=== PATIENT | female | born 1930 | race Caucasian/White ===

== ENCOUNTER 2017-10-26 17:12 | Observation (INO) | payer OTHER, MEDICARE ==
[2017-10-26] MEDS ORDERED: ONDANSETRON 4 MG/2 ML VIAL ONE (17:56)
[2017-10-26] MEDS ORDERED: ONDANSETRON 4 MG/2 ML VIAL IVPUSH ONE (18:01)
--- NOTE | 2017-10-26 18:04 | PDOC ---
History of Present Illness <Andreia Delgadillo - Last Filed: 10/26/17 18:04> - General History Source: Patient Exam Limitations: No Limitations - History of Present Illness Initial Comments: 10/26/17 20:46 87 y.o female with significant past medical history of depression and appendectomy, who presents to the emergency room complaining of 1 day of lightheadedness, nausea, and diarrhea. She notes that she experienced 2 bouts of nonbloody diarrhea today. The patient states that she was sitting on the couch at home when she suddenly felt lightheaded like she was going to pass out and called EMS. Her last meal was 2 slices of toast and a cup of tea this morning. She notes that she had a normal well visit with her PCP in the office yesterday. Denies vomiting, fever, chills. Denies abdominal pain. Denies sick contact. Denies chest pain, SOB, leg swelling. Allergies: codeine, penicillins Social hx: The patient states that her 2 years ago and she now lives at home alone. PCP: Dr. 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) Cardiac Disorders: No CVA: No COPD: No CHF: No Dementia: No Diabetes: No GI Disorders: Yes (COLONIC POLYPS GERD) Disorders: Yes (URINARY FREQUENCY) HTN: No Hypercholesterolemia: Yes (DOES NOT TAKE MEDICATION) Liver Disease: No Seizures: No Thyroid Disease: No - Surgical History Abdominal Surgery: Yes (EXPLORATORY LAPARASCOPY) Appendectomy: No Cardiac Surgery: No Cholecystectomy: No Gastric Stapling: No Lung Surgery: No Neurologic Surgery: No Orthopedic Surgery: No - Immunization History Immunization Up to Date: No - Suicide/Smoking/Psychosocial Hx Smoking History: Never smoked Have you smoked in the past 12 months: No Information on smoking cessation initiated: No Hx Alcohol Use: No Drug/Substance Use Hx: No Substance Use Type: None Hx Substance Use Treatment: No <Andreia Delgadillo - Last Filed: 10/26/17 18:04> <Jeanna Medrano - Last Filed: 10/26/17 20:47> - Past Medical History Allergies/Adverse Reactions: Allergies Allergy/AdvReac Type Severity Reaction Status Date / Time codeine [Codeine] Allergy Verified 12/23/15 13:24 Penicillins Allergy Verified 12/23/15 13:24 Home Medications: Ambulatory Orders Multivit-Min/FA/Lycopene/Lut [Centrum Silver Tablet] 1 each PO DAILY 09/11/13 Aspirin [Aspir 81] 81 mg PO DAILY 10/11/13 Cholecalciferol (Vitamin D3) [Vitamin D3] 2,000 unit PO DAILY tablet 10/11/13 Review of Systems - Review of Systems Able to Perform ROS?: Yes Comments:: 10/26/17 20:46 GENERAL/CONSTITUTIONAL: No fever or chills. No weakness. HEAD, EYES, EARS, NOSE AND THROAT: No change in vision. No ear pain or discharge. No sore throat. GASTROINTESTINAL: +Nausea, diarrhea. No vomiting or constipation. GENITOURINARY: No dysuria, frequency, or change in urination. CARDIOVASCULAR: No chest pain or shortness of breath. RESPIRATORY: No cough, wheezing, or hemoptysis. MUSCULOSKELETAL: No joint or muscle swelling or pain. No neck or back pain. SKIN: No rash NEUROLOGIC: No headache, vertigo, loss of consciousness, or change in strength/ sensation. ENDOCRINE: No increased thirst. No abnormal weight change. HEMATOLOGIC/LYMPHATIC: No anemia, easy bleeding, or history of blood clots. ALLERGIC/IMMUNOLOGIC: No hives or skin allergy. <Jeanna Medrano - Last Filed: 10/26/17 20:47> *Physical Exam - Vital Signs Last Vital Signs Temp Pulse Resp BP Pulse Ox 97.7 F 66 20 150/68 99 10/26/17 17:13 10/26/17 17:13 10/26/17 17:13 10/26/17 17:13 10/26/17 17:13 <Andreia Delgadillo - Last Filed: 10/26/17 18:04> - Vital Signs Last Vital Signs Temp Pulse Resp BP Pulse Ox 97.7 F 66 20 150/68 99 10/26/17 17:13 10/26/17 17:13 10/26/17 17:13 10/26/17 17:13 10/26/17 17:13 - Physical Exam Comments: 10/26/17 20:47 GENERAL: Awake, alert, and fully oriented, in no acute distress HEAD: No signs of trauma EYES: PERRLA, EOMI, sclera anicteric, conjunctiva clear ENT: Auricles normal inspection, hearing grossly normal, nares patent, oropharynx clear without exudates. +dry mucous membranes NECK: Normal ROM, supple, no lymphadenopathy, JVD, or masses LUNGS: Breath sounds equal, clear to auscultation bilaterally. No wheezes, and no crackles HEART: Regular rate and rhythm, normal S1 and S2, no murmurs, rubs or gallops ABDOMEN: Soft, nontender, normoactive bowel sounds. No guarding, no rebound. No masses EXTREMITIES: Normal range of motion, no edema. No clubbing or cyanosis. No cords, erythema, or tenderness BACK: No midline spinal tenderness in cervical/thoracic/lumbar region NEUROLOGICAL: Normal speech, cranial nerves intact, negative pronator drift, 5/ 5 strength in all 4 extremities, normal sensation to light touch in all 4 extremities, normal cerebellar exam, normal gait, normal reflexes and tone SKIN: Warm, Dry, normal turgor, no rashes or lesions noted. <Jeanna Medrano - Last Filed: 10/26/17 20:47> ED Treatment Course - Medications Given in the ED: ED Medications Discontinued Medications Generic Name Dose Route Start Last Admin Trade Name Carlos PRN Reason Stop Dose Admin Ondansetron HCl 4 mg 10/26/17 18:01 10/26/17 18:01 Zofran Injection IVPUSH 10/26/17 18:02 4 mg NOW ONE Administration <Andreia Delgadillo - Last Filed: 10/26/17 18:04> - LABORATORY CBC & Chemistry Diagram: 10/26/17 18:01 10/26/17 18:01 - ADDITIONAL ORDERS Additional order review: Laboratory Results 10/26/17 10/26/17 18:23 18:01 Sodium 137 Potassium 4.0 Chloride 106 Carbon Dioxide 20 L D Anion Gap 11 BUN 14 Creatinine 0.8 Creat Clearance w eGFR > 60 Random Glucose 123 H Calcium 9.5 Magnesium 2.1 Total Bilirubin 0.7 D AST 27 ALT 21 D Alkaline Phosphatase 64 Troponin I 0.00 Total Protein 7.0 Albumin 4.1 10/26/17 18:01 RBC 4.64 MCV 90.9 MCHC 33.1 RDW 12.5 MPV 10.5 Neutrophils % 71.7 D Lymphocytes % 18.5 D Monocytes % 8.7 Eosinophils % 1.0 Basophils % 0.1 - Medications Given in the ED: ED Medications Discontinued Medications Generic Name Dose Route Start Last Admin Trade Name Carlos PRN Reason Stop Dose Admin Ondansetron HCl 4 mg 10/26/17 18:01 10/26/17 18:01 Zofran Injection IVPUSH 10/26/17 18:02 4 mg NOW ONE Administration Sodium Chloride 1,000 ml 10/26/17 18:22 10/26/17 18:27 Normal Saline - IV 10/26/17 18:23 1,000 ml ONCE ONE Administration <Jeanna Medrano - Last Filed: 10/26/17 20:47> *DC/Admit/Observation/Transfer <Andreia Delgadillo - Last Filed: 10/26/17 18:04> - Attestations Scribe Attestion: 10/26/17 20:47 Documentation prepared by JIAN Mobley, acting as medical observer for Cynthia Hernandez MD. <Jeanna Medrano - Last Filed: 10/26/17 20:47> Diagnosis at time of Disposition: Dehydration Diarrhea Qualifiers: Diarrhea type: presumed infectious Qualified Code(s): A09 - Infectious gastroenteritis and colitis, unspecified
[2017-10-26 18:22] LABS: BASO % 0.1 % (0-2.0); MCH 30.1 pg (25.7-33.7); MCHC 33.1 g/dl (32.0-36.0); MEAN CELL VOLUME 90.9 fl (80-96); MEAN PLT VOLUME 10.5 fl (7.5-11.1); NEUT % 71.7 % (42.8-82.8); PLATELET COUNT 165 K/MM3 (134-434); RDW 12.5 % (11.6-15.6); WHITE BLOOD COUNT 6.7 K/mm3 (4.0-10.8)
[2017-10-26] MEDS ORDERED: SODIUM CHLORIDE 0.9% 500 ML INFUS.BAG IV ONE (18:22)
[2017-10-26 18:30] LABS: ALBUMIN 4.1 g/dl (3.5-5.0); ALK PHOS 64 U/L (32-92); ANION GAP 11 (8-16); BILIRUBIN,TOTAL 0.7 mg/dl (0.2-1.0); CALCIUM 9.5 mg/dl (8.4-10.2); CO2 20 mmol/L (22-28); CREATININE 0.8 mg/dl (0.6-1.3); GLUCOSE,RANDOM 123 mg/dl (74-106); SGOT/AST 27 U/L (10-42); SGPT/ALT 21 U/L (10-40)
[2017-10-26 18:45] LABS: MAGNESIUM 2.1 mg/dL (1.8-2.4)
[2017-10-26 18:55] LABS: EOS # 0.1 #; LYMPH # 1.2 # (8-40); MONO # 0.6 #; NEUT # 4.8 # (42.8-82.8)
--- NOTE | 2017-10-26 20:17 | PDOC ---
*Physical Exam - Vital Signs Last Vital Signs Temp Pulse Resp BP Pulse Ox 97.7 F 66 20 150/68 99 10/26/17 17:13 10/26/17 17:13 10/26/17 17:13 10/26/17 17:13 10/26/17 17:13 ED Treatment Course - LABORATORY CBC & Chemistry Diagram: 10/26/17 18:01 10/26/17 18:01 - ADDITIONAL ORDERS Additional order review: Laboratory Results 10/26/17 10/26/17 18:23 18:01 Sodium 137 Potassium 4.0 Chloride 106 Carbon Dioxide 20 L D Anion Gap 11 BUN 14 Creatinine 0.8 Creat Clearance w eGFR > 60 Random Glucose 123 H Calcium 9.5 Magnesium 2.1 Total Bilirubin 0.7 D AST 27 ALT 21 D Alkaline Phosphatase 64 Troponin I 0.00 Total Protein 7.0 Albumin 4.1 10/26/17 18:01 RBC 4.64 MCV 90.9 MCHC 33.1 RDW 12.5 MPV 10.5 Neutrophils % 71.7 D Lymphocytes % 18.5 D Monocytes % 8.7 Eosinophils % 1.0 Basophils % 0.1 - Medications Given in the ED: ED Medications Discontinued Medications Generic Name Dose Route Start Last Admin Trade Name Freq PRN Reason Stop Dose Admin Ondansetron HCl 4 mg 10/26/17 18:01 10/26/17 18:01 Zofran Injection IVPUSH 10/26/17 18:02 4 mg NOW ONE Administration Sodium Chloride 1,000 ml 10/26/17 18:22 10/26/17 18:27 Normal Saline - IV 10/26/17 18:23 1,000 ml ONCE ONE Administration Progress Note - Progress Note Progress Note: Care of this patient received from Case discussed with EVELYN Sahu. Patient admitted in observation status to [facility]. admitting. *DC/Admit/Observation/Transfer Diagnosis at time of Disposition: Dehydration Diarrhea Qualifiers: Diarrhea type: presumed infectious Qualified Code(s): A09 - Infectious gastroenteritis and colitis, unspecified - Discharge Dispostion Admit: Yes - Referrals - Patient Instructions - Post Discharge Activity
--- NOTE | 2017-10-26 20:54 | HP ---
CHIEF COMPLAINT: Diarrhea PCP: Dr. Sharma HISTORY OF PRESENT ILLNESS: 87 year-old female with a PMH significant for depression. Patient states she ate a ham sandwich yesterday and the ham was not fresh, had been in the refrigerator for a week. She awoke this morning in her usual state of health and had tea and toast for breakfast. She left the house and had a large diarrheal movement. She returned home, cleaned herself, and then had a second diarrheal episode. Both episodes were preceded by abdominal cramping. Both were dark brown and watery. Patient became lightheaded and called 911. Since arriving to ED there have been no further episodes of diarrhea and she feels better after receiving 1L NS. Patient reports her stomach was bloated and distended prior to the diarrhea episodes and that has resolved. Patient denies fever, sweats, chills. Admits to nausea, no vomiting. No recent antibiotics. No recent travel. No sick contacts. Denies dysuria, urgency, wears a pad for a "leaky bladder." Has not had the flu shot and declines now. ER course was notable for: (1) Afebrile, vital signs stable (2) No leukocytosis (3) NS 1L x 1 Recent Travel: No PAST MEDICAL HISTORY: Depression Basal cell carcinoma (face) GERD Colonic polyps Urinary incontinence PAST SURGICAL HISTORY: Exploratory laparascopy Appendectomy Social History: Smoking: never Alcohol: no Drugs: no Family History: , lives alone Allergies codeine [Codeine] Allergy (Verified 12/23/15 13:24) Penicillins Allergy (Verified 12/23/15 13:24) HOME MEDICATIONS: Medication Instructions Recorded Multivit-Min/FA/Lycopene/Lut 1 each PO DAILY 09/11/13 [Centrum Silver Tablet] Aspirin [Aspir 81] 81 mg PO DAILY 10/11/13 Cholecalciferol (Vitamin D3) 2,000 unit PO DAILY tablet 10/11/13 [Vitamin D3] REVIEW OF SYSTEMS CONSTITUTIONAL: Present: lightheadedness Absent: fever, chills, diaphoresis, generalized weakness, malaise, loss of appetite, weight change HEENT: Absent: rhinorrhea, nasal congestion, throat pain, throat swelling, difficulty swallowing, mouth swelling, ear pain, eye pain, visual changes CARDIOVASCULAR: Absent: chest pain, syncope, palpitations, irregular heart rate, lightheadedness , peripheral edema RESPIRATORY: Absent: cough, shortness of breath, dyspnea with exertion, orthopnea, wheezing, stridor, hemoptysis GASTROINTESTINAL: Present: abdominal cramping, bloating, diarrhea, nausea Absent: vomiting, constipation, melena, hematochezia GENITOURINARY: Present: urinary incontinence Absent: dysuria, frequency, urgency, hesitancy, hematuria, flank pain, genital pain MUSCULOSKELETAL: Absent: myalgia, arthralgia, joint swelling, back pain, neck pain SKIN: Absent: rash, itching, pallor HEMATOLOGIC/IMMUNOLOGIC: Absent: easy bleeding, easy bruising, lymphadenopathy, frequent infections ENDOCRINE: Absent: unexplained weight gain, unexplained weight loss, heat intolerance, cold intolerance NEUROLOGIC: Absent: headache, focal weakness or paresthesias, dizziness, unsteady gait, seizure, mental status changes, bladder or bowel incontinence PSYCHIATRIC: Absent: anxiety, depression, suicidal or homicidal ideation, hallucinations. PHYSICAL EXAMINATION Vital Signs - 24 hr 10/26/17 17:13 Temperature 97.7 F Pulse Rate 66 Respiratory 20 Rate Blood Pressure 150/68 O2 Sat by Pulse 99 Oximetry (%) GENERAL: Awake, alert, and fully oriented, in no acute distress. HEAD: Normal with no signs of trauma. EYES: Pupils equal, round and reactive to light, extraocular movements intact, sclera anicteric, conjunctiva clear. No lid lag. EARS, NOSE, THROAT: Ears normal, nares patent, oropharynx clear without exudates. Moist mucous membranes. NECK: Normal range of motion, supple without lymphadenopathy, JVD, or masses. LUNGS: Breath sounds equal, clear to auscultation bilaterally. No wheezes, and no crackles. No accessory muscle use. HEART: Regular rate and rhythm, normal S1 and S2 without murmur, rub or gallop. ABDOMEN: Soft, nontender, not distended, normoactive bowel sounds, no guarding, no rebound. MUSCULOSKELETAL: Normal range of motion at all joints. No bony deformities or tenderness. No CVA tenderness. UPPER EXTREMITIES: 2+ pulses, warm, well-perfused. No cyanosis. No clubbing. No peripheral edema. LOWER EXTREMITIES: 2+ pulses, warm, well-perfused. No calf tenderness. No peripheral edema. NEUROLOGICAL: Cranial nerves II-XII intact. Normal speech. Laboratory Results - last 24 hr 10/26/17 10/26/17 10/26/17 18:01 18:01 18:23 WBC 6.7 RBC 4.64 Hgb 14.0 Hct 42.2 MCV 90.9 MCH 30.1 MCHC 33.1 RDW 12.5 Plt Count 165 MPV 10.5 Absolute Neuts (auto) 4.8 L Absolute Lymphs (auto) 1.2 L Absolute Monos (auto) 0.6 Absolute Eos (auto) 0.1 Absolute Basos (auto) 0.0 L Neutrophils % 71.7 D Lymphocytes % 18.5 D Monocytes % 8.7 Eosinophils % 1.0 Basophils % 0.1 Sodium 137 Potassium 4.0 Chloride 106 Carbon Dioxide 20 L D Anion Gap 11 BUN 14 Creatinine 0.8 Creat Clearance w eGFR > 60 Random Glucose 123 H Calcium 9.5 Magnesium 2.1 Total Bilirubin 0.7 D AST 27 ALT 21 D Alkaline Phosphatase 64 Troponin I 0.00 Total Protein 7.0 Albumin 4.1 ASSESSMENT/PLAN: 87 year-old female with a PMH significant for depression. Placed on observation for lightheadedness likely secondary to dehydration from diarrhea. Diarrhea --non-focal exam --no fever, no leukocytosis, no electrolyte imbalance --collect and send occult stool, c.diff, UA, UC Lightheadedness --likely secondary to GI losses, has been hemodynamically stable --orthostatics now --gentle IV fluids --review ECG, telemetry monitoring overnight FEN Fluids: D51/2 @ 75mL/hr Electrolytes: replete as indicated Nutrition: NPO for now; trial of clears for breakfast DVT prophylaxis: SCDs, oob, ambulation; start subq lovenox tomorrow if still here. Dispo: continues to require observation. Full code. Visit type - Emergency Visit Emergency Visit: Yes Care time: The patient presented to the Emergency Department on the above date and was hospitalized for further evaluation of their emergent condition. - New Patient This patient is new to me today: Yes Date on this admission: 10/26/17 - Critical Care Critical Care patient: No
[2017-10-26] MEDS ORDERED: ACETAMINOPHEN 325 MG TABLET (FP) PO PRN (20:56)
[2017-10-26] MEDS ORDERED: DEXTROSE 5%-0.45% SALINE 1,000 ML IV SCH (21:00)
[2017-10-26] MEDS ORDERED: HEPARIN NA (PORCINE) 5,000 UNITS/ML 1ML VIAL ONE (21:51)
[2017-10-26 22:00] LABS: PH,URINE 5.5 (4.5-8); URINE BILIRUBIN Negative (NEGATIVE); URINE GLUCOSE (UA) Negative (NEGATIVE); URINE KETONE 3+ (NEGATIVE); URINE NITRITE Negative (NEGATIVE); URINE PROTEIN Negative (NEGATIVE); URINE UROBILINOGEN 0.2 (0.2-1.0)
[2017-10-26 22:02] LABS: URINE APPEARANCE HAZY; URINE BLOOD Trace-intact (NEGATIVE); URINE COLOR YELLOW; URINE LEUK ESTERASE 1+ (NEGATIVE)
[2017-10-26 22:13] LABS: URINE BACTERIA FEW /hpf (NEGATIVE)
[2017-10-27 00:49] VITALS: BMI 27.8
[2017-10-27 06:00] VITALS: BP 107/57; PULSE 56; TEMP 97.6
[2017-10-27 08:19] LABS: BASO % 0.4 % (0-2.0); EOS % 2.4 % (0-4.5); MCH 29.7 pg (25.7-33.7); MCHC 32.7 g/dl (32.0-36.0); MEAN CELL VOLUME 90.8 fl (80-96); MEAN PLT VOLUME 10.9 fl (7.5-11.1); PLATELET COUNT 137 K/MM3 (134-434); RDW 12.7 % (11.6-15.6); WHITE BLOOD COUNT 4.3 K/mm3 (4.0-10.8)
[2017-10-27 08:34] LABS: ALBUMIN 3.1 g/dl (3.5-5.0); ALK PHOS 50 U/L (32-92); ANION GAP 5 (8-16); BILIRUBIN,TOTAL 0.8 mg/dl (0.2-1.0); CALCIUM 8.5 mg/dl (8.4-10.2); CO2 24 mmol/L (22-28); CREATININE 0.7 mg/dl (0.6-1.3); GLUCOSE,RANDOM 104 mg/dl (74-106); MAGNESIUM 1.9 mg/dL (1.8-2.4); SGOT/AST 22 U/L (10-42); SGPT/ALT 17 U/L (10-40); TOT PROT 5.4 g/dl (6.4-8.3)
--- NOTE | 2017-10-27 08:59 | EKG ---
Test Reason : Blood Pressure : / mmHG Vent. Rate : 066 BPM Atrial Rate : 066 BPM P-R Int : 138 ms QRS Dur : 072 ms QT Int : 444 ms P-R-T Axes : 028 007 027 degrees QTc Int : 465 ms NORMAL SINUS RHYTHM NORMAL ECG NO PREVIOUS ECGS AVAILABLE Confirmed by TOMAS CASTILLO MD ([id number]) on 10/27/2017 8:58:57 AM Referred By: DR RODRIGUEZ Confirmed By:TOMAS CASTILLO MD
[2017-10-27] MEDS ORDERED: SULFAMETHOXAZOLE/TRIMETHOPRIM 400MG/80MG S.S. TABLET PO SCH (09:00)
[2017-10-27] MEDS ORDERED: ASPIRIN COATED 81 MG TABLET.EC PO SCH (10:00)
[2017-10-27] MEDS ORDERED: PARoxetine HCL 10 MG TABLET (FP) PO SCH (10:00)
[2017-10-27 11:12] LABS: BASO # 0.1 # (0.1-1); EOS # 0.1 #; LYMPH # 1.6 # (8-40); MONO # 0.6 #
--- NOTE | 2017-10-27 12:12 | DS ---
Physical Exam: SUBJECTIVE: Patient seen and examined. c/o dysuria and urinary frequency. states she wears pads due to urinary incontinence but noticed she has to change them more frequently. tolerated liquid diet. no loose BM since arrival to the ER. dizzyness resolved. denies CP, SOB< fever, chills, N/V/C/D OBJECTIVE: Vital Signs Period Temp Pulse Resp BP Sys/Sood Pulse Ox Last 24 Hr 97.6 F-98.6 F 56-80 18-20 107-150/57-72 95-99 PHYSICAL EXAM GENERAL: The patient is awake, alert, and fully oriented, in no acute distress. HEAD: Normal with no signs of trauma. EYES: PERRL, extraocular movements intact, sclera anicteric, conjunctiva clear. ENT: Ears normal, nares patent, oropharynx clear without exudates, moist mucous membranes. NECK: Trachea midline, full range of motion, supple. LUNGS: Breath sounds equal, clear to auscultation bilaterally, no wheezes, no crackles, no accessory muscle use. HEART: Regular rate and rhythm, S1, S2 without murmur, rub or gallop. ABDOMEN: Soft, nontender, nondistended, normoactive bowel sounds, no guarding, no rebound, no hepatosplenomegaly, no masses. EXTREMITIES: 2+ pulses, warm, well-perfused, no edema. NEUROLOGICAL: Cranial nerves II through XII grossly intact. Normal speech, gait not observed. PSYCH: Normal mood, normal affect. SKIN: Warm, dry, normal turgor, no rashes or lesions noted. LABS Laboratory Results - last 24 hr 10/26/17 10/26/17 10/26/17 18:01 18:01 18:23 WBC 6.7 RBC 4.64 Hgb 14.0 Hct 42.2 MCV 90.9 MCH 30.1 MCHC 33.1 RDW 12.5 Plt Count 165 MPV 10.5 Absolute Neuts (auto) 4.8 L Absolute Lymphs (auto) 1.2 L Absolute Monos (auto) 0.6 Absolute Eos (auto) 0.1 Absolute Basos (auto) 0.0 L Neutrophils % 71.7 D Lymphocytes % 18.5 D Monocytes % 8.7 Eosinophils % 1.0 Basophils % 0.1 Sodium 137 Potassium 4.0 Chloride 106 Carbon Dioxide 20 L D Anion Gap 11 BUN 14 Creatinine 0.8 Creat Clearance w eGFR > 60 Random Glucose 123 H Calcium 9.5 Magnesium 2.1 Total Bilirubin 0.7 D AST 27 ALT 21 D Alkaline Phosphatase 64 Troponin I 0.00 Total Protein 7.0 Albumin 4.1 Urine Color Urine Appearance Urine pH Ur Specific [place] Urine Protein Urine Glucose (UA) Urine Ketones Urine Blood Urine Nitrite Urine Bilirubin Urine Urobilinogen Ur Leukocyte Esterase Urine RBC Urine WBC Ur Epithelial Cells Amorphous Urates Urine Bacteria 10/26/17 10/27/17 10/27/17 21:58 07:30 07:30 WBC 4.3 D RBC 3.94 Hgb 11.7 D Hct 35.8 D MCV 90.8 MCH 29.7 MCHC 32.7 RDW 12.7 Plt Count 137 MPV 10.9 Absolute Neuts (auto) 2.0 L Absolute Lymphs (auto) 1.6 L D Absolute Monos (auto) 0.6 Absolute Eos (auto) 0.1 Absolute Basos (auto) 0.1 Neutrophils % 47.0 D Lymphocytes % 36.8 D Monocytes % 13.4 H Eosinophils % 2.4 D Basophils % 0.4 D Sodium 138 Potassium 3.6 Chloride 109 H Carbon Dioxide 24 Anion Gap 5 L BUN 11 D Creatinine 0.7 Creat Clearance w eGFR > 60 Random Glucose 104 Calcium 8.5 Magnesium 1.9 Total Bilirubin 0.8 AST 22 ALT 17 Alkaline Phosphatase 50 D Troponin I Total Protein 5.4 L D Albumin 3.1 L D Urine Color Yellow Urine Appearance Hazy Urine pH 5.5 Ur Specific [place] 1.015 Urine Protein Negative Urine Glucose (UA) Negative Urine Ketones 3+ H Urine Blood Trace-intact H Urine Nitrite Negative Urine Bilirubin Negative Urine Urobilinogen 0.2 Ur Leukocyte Esterase 1+ H Urine RBC 5-10 Urine WBC 10-20 Ur Epithelial Cells Moderate Amorphous Urates Few Urine Bacteria Few HOSPITAL COURSE: Date of Admission:10/26/17 Date of Discharge: 10/27/17 Admitting diagnosis: dizzyness, enteritis, UTI Pre hospital course 87 year-old female with a PMH significant for depression. Patient states she ate a ham sandwich yesterday and the ham was not fresh, had been in the refrigerator for a week. She awoke this morning in her usual state of health and had tea and toast for breakfast. She left the house and had a large diarrheal movement. She returned home, cleaned herself, and then had a second diarrheal episode. Both episodes were preceded by abdominal cramping. Both were dark brown and watery. Patient became lightheaded and called 911. Since arriving to ED there have been no further episodes of diarrhea and she feels better after receiving 1L NS. Patient reports her stomach was bloated and distended prior to the diarrhea episodes and that has resolved. Patient denies fever, sweats, chills. Admits to nausea, no vomiting. No recent antibiotics. No recent travel. No sick contacts. Denies dysuria, urgency, wears a pad for a "leaky bladder." Has not had the flu shot and declines now. Subsequent hospital course Medicine observation. started on IVF and antiemetics with clinical improvement. UA + with assoc symptoms. started on bactrim due to PCN allergy.tolerated liquid diet. diet advanced and tolerated. d/c home on bactrim to complete 5 day course. plan d/w daughter present at bedside, all questions answered. verbalized understanding and agreement with plan Minutes to complete discharge: 40 Discharge Summary Reason For Visit: DIARRHEA,WEAK Current Active Problems Dehydration (Acute) Diarrhea (Acute) UTI (urinary tract infection) (Acute) Depression (Chronic) Condition: Good - Instructions Diet, Activity, Other Instructions: You were admitted to the hospital due to your dizzyness and diarrhea. You were found to have a urinary tract infection and started on antibiotics. It is important that you complete antibiotics even if your symptoms resolve. Start the medication tonight as you received your first dose in the hospital. Make sure you are drinking plenty of water. Continue your medications as before Follow up with your primary care doctor in 1 week If your symptoms worsen return to the ER. Referrals: Toni Erwin MD [Staff Physician] - Disposition: HOME - Home Medications Comprehensive Discharge Medication List: Ambulatory Orders Multivit-Min/FA/Lycopene/Lut [Centrum Silver Tablet] 1 each PO DAILY 09/11/13 Aspirin [Aspir 81] 81 mg PO DAILY 10/11/13 Cholecalciferol (Vitamin D3) [Vitamin D3] 2,000 unit PO DAILY tablet 10/11/13 Sulfamethoxazole/Trimethoprim [Bactrim SS -] 1 each PO Q12H #9 tablet 10/27/17 This patient is new to me today: Yes Date on this admission: 10/27/17 Emergency Visit: Yes ED Registration Date: 10/26/17 Care time: The patient presented to the Emergency Department on the above date and was hospitalized for further evaluation of their emergent condition. Critical Care patient: No - Discharge Referral Referred to [facility] Med P.C[facility] Yes Physician Referral: Toni Erwin MD (Int Med)
[2017-10-27] MEDS ORDERED: HEPARIN NA (PORCINE) 5,000 UNITS/ML 1ML VIAL SQ SCH (22:00)
== END 2017-10-27 13:08 | disposition home or self-care (01) ==
LOC: FER 17:12 → FM/S 22:13
PROVIDERS: ADMIT Internal Medicine; ATTEND Nurse Practitioner Family
PROC: 3E033GC Introduction of Other Therapeutic Substance into Peripheral Vein, Percutaneous Approach (ICD-10-PCS; principal; 2017-10-26)
DX: E86.0 Dehydration (principal); A09 Infectious gastroenteritis and colitis, unspecified; N39.0 Urinary tract infection, site not specified; F32.9 Major depressive disorder, single episode, unspecified; Z85.828 Personal history of other malignant neoplasm of skin; K21.9 Gastro-esophageal reflux disease without esophagitis; Z88.5 Allergy status to narcotic agent; Z79.82 Long term (current) use of aspirin
CPT/HCPCS: 36415; 71010-TC; 80053; 81003; 81015; 83735; 84484; 85025; 87086; 93005; 96374; 99285-25; G0378